=== PATIENT | male | born 1985 | race Two or more races ===

== ENCOUNTER 2024-03-26 09:29 | Emergency (ER) | payer SELFPAY ==
[~2024-03-26] VITALS: Ht 162.6 cm; Wt 61.7 kg
[2024-03-26 09:39] VITALS: BP 132/66; TEMP 97.9; O2SAT 99
== END 2024-03-26 10:05 | disposition home or self-care (01) ==
LOC: ER 09:33
DX: S61.411D Laceration without foreign body of right hand, subsequent encounter (principal); F17.200 Nicotine dependence, unspecified, uncomplicated; Z48.00 Encounter for change or removal of nonsurgical wound dressing; Z60.2 Problems related to living alone; X58.XXXD Exposure to other specified factors, subsequent encounter